=== PATIENT | male | born 1980 | race Caucasian/White ===

== ENCOUNTER → 2022-03-18 14:03 | Outpatient (REF) | payer OTHER, SELFPAY | LOC: HO.SL 14:03 | PROVIDERS: PCP Internal Medicine; Visit Provider Nurse Practitioner Family | DX: G47.33 Obstructive sleep apnea (adult) (pediatric) (principal); R06.83 Snoring | CPT/HCPCS: 95806 ==

== ENCOUNTER → 2022-04-28 15:50 | Outpatient (BNVA) | payer OTHER, SELFPAY | PROVIDERS: PCP Internal Medicine; Visit Provider Internal Medicine | DX: G47.33 Obstructive sleep apnea (adult) (pediatric) (principal); R06.83 Snoring; J30.9 Allergic rhinitis, unspecified | CPT/HCPCS: 99202 ==

== ENCOUNTER 2023-02-28 14:06 | Outpatient (AMB) | payer OTHER, SELFPAY ==
--- NOTE | 2023-02-28 14:12 | A.OFFVIS_ITS ---
Intake Vital Signs 02/28/23 14:20 Height 57 ft Weight 186 lb BMI 0.3 BP 112/70 Blood Pressure Location Lt brachial Position Sitting Pulse 82 Pulse Source Pulse Oximeter Pulse Oximetry (%) 98 Oxygen Delivery Method Room Air Intake Visit Reasons: Sleep apnea Intake Note: pt is here for follow up of JOHANA and states he could not use the machine due to d ry mouth. He feels good, but states sometimes he goes to bed late but does not feel tired throughout the day. pt had surgery recently and told that he may need oxygen. Senior Clinical Research Scientist Required: Yes Senior Clinical Research Scientist Name: Yari Allergies hydroxyzine [Vistaril] Adverse Reaction (Unknown, Verified 02/28/23 14:39) confusion Medication List - Last Reconciled 02/28/23 by Bea Valencia MD azelastine-fluticasone 137-50 mcg/spray 1 spray intranasal BID 30 days MDD ALLERGIC RHINITIS Do you need a note to return to daycare/school/sports/work: No HPI Sleep apnea HPI Details 42 years old gentleman is a case of obst ructive sleep apnea, He was not able to use the CPAP so returned the machine. He did lose 10 lb of weight. He is sleeping mostly in lateral position. He does have some snoring at night but, sleeps okay throughout the night. He denies any daytime sleepiness, except for the days when he slept late at night. He has no cough wheezing or shortness. Of breath during the daytime Nasal congestion is controlled with the use of Azelastine-fluticasone nasal spray 1 spray in each nostril b.i.d.. [facility] Medical History Allergic rhinitis Obstructive sleep apnea syndrome, moderate Chronic sinusitis Snoring Surgical History History of orthopedic surgery History of excision of mass Family History Father Bone cancer Mother CVD (cardiovascular disease) Maternal Grandfather Cancer of neck Maternal Grandmother Diabetes CVD (cardiovascular disease) Social History Housing: House Alcohol intake: current Alcohol intake frequency: holidays/special occasions only Patient Tobacco Use Status: Current everyday Tobacco user Cigarettes Per Day: 12 e-Cigarette/Vaping Use: Never Used Second Hand Smoke Exposure: No service: No Current occupational status: employed Cognitive needs: No Hearing needs: No Vision needs: No Review of Systems Const All systems reviewed & are unremarkable except as noted in HPI and below Reports snoring Eyes Reports no additional complaints ENT Reports nasal congestion and Reports nasal discharge Card Denies chest pain at rest, Denies irregular heart rhythm and Denies leg edema Resp Reports cough (MILD OFF AND ON), Reports snoring and Denies wheezing GI Reports no additional complaints Reports no additional complaints Musc Reports no additional complaints Skin/Breast Reports system reviewed and no additional complaints, except as documented Neuro Reports no additional complaints Psych Reports no additional complaints Endo Reports no additional complaints Aller/Immun Reports no additional complaints and Denies wheezing Physical Exam Vital Signs: Last Vital Signs Pulse 82 02/28/23 14:20 BP 112/70 02/28/23 14:20 Pulse Ox 98 02/28/23 14:20 Oxygen Delivery Method Room Air 02/28/23 14:20 BMI result Body Mass Index 0.3 Const General: healthy appearing (EXCEPT FOR MODERATELY OVERWEIGHT), comfortable, no acute distress, alert and awake Orientation/consciousness: patient oriented x3 HEENT Head: Yes normal to inspection General nose exam: No nasal polyps present, No nasal discharge present and Other nasal findings present (MILD NASAL CONGESTION) Face and sinus: Yes sinuses nontender Mouth: oropharynx normal Throat: Yes posterior oropharynx normal Eyes General: appearance normal, both eyes and all related structures Neck Neck: Yes normal visual inspection, Yes no lymphadenopathy, Yes trachea midline and Yes no JVD Thyroid: Thyroid normal Chest Chest palpation & inspection: normal inspection of the chest, normal palpation of entire chest wall and no tenderness Resp Effort & Inspection: normal respiratory effort Auscultation: clear to auscultation bilaterally, no crackles and no wheezes Cardio Palpation: normal PMI Rate: regular rate Rhythm: regular rhythm Heart sounds: no gallops and no murmurs Peripheral pulses: Peripheral pulses 2+ throughout GI Palpation (GI): Soft to palpation, nontender, No hepatosplenomegaly present and no masses Auscultation: normal bowel sounds Back/Spine/Pelvis Thoracic/Lumbar Spine: thoracic and lumbar spine normal to inspection Skin General skin exam: no rashes or lesions noted Neuro General: patient oriented x3 and no focal motor deficits Cranial nerves: Yes CN's II-XII intact bilaterally Extrem General: Yes normal to inspection, Yes no clubbing, cyanosis or edema and Yes no calf tenderness Psych Appearance: grossly normal and well kempt Speech and movement: Normal speech and movement present Assessment & Plan Assessment & Plan (1) Allergic rhinitis: Comment: HE HAS HAD LOW-GRADE CHRONIC ALLERGIC RHINITIS, HE HAS TRY TO USE FLONASE IN THE PAST WITHOUT MUCH HELP. CURRENTLY ON AZELASTINE- FLUTICASONE 1 SPRAY IN EACH NOSTRIL B.I.D. HE MAY USE LORATADINE 10 MG AT BEDTIME P.R.N.. Code(s): J30.9 - Allergic rhinitis, unspecified Plan: ABOVE (2) Snoring: Comment: ACCORDING TO HIS HE DEFINITELY HAS LOUD SNORING AND FREQUENT AWAKENING DURING THE NIGHT. NOW THAT HE HAS LOST 10 LB OF WEIGHT, HIS SNORING IS LESS, ESPECIALLY WHEN HE SLEEPS ON HIS SIDE. Code(s): R06.83 - Snoring Plan: ADVISED TO CONTINUE LOSING MORE WEIGHT, AND ALSO ALWAYS SLEEP IN LATERAL POSITION . (3) Obstructive sleep apnea syndrome, moderate: Comment: HE HAS MODERATELY SEVERE OBSTRUCTIVE SLEEP APNEA WITH TOTAL SLEEP TIME AHI 18.1, MOST OF THE SLEEP IS IN SUPINE POSITION. SNORING FOR 23% OF THE SLEEP TIME PART OF JOHANA. ALSO HAS MILD NOCTURNAL HYPOXEMIA WITH O2 SAT BELOW 88% FOR 27 MINUTES. I EXPLAINED TO THE PATIENT AND HIS THROUGH THE INTEGRATION PROJECT MANAGER, ABOUT THE FINDINGS OF HIS SLEEP STUDY, AND NEED TO START USING THE CPAP. HE WAS PRESCRIBED CPAP, BUT HE COULD NOT USE. HE FELT HIS MOUTH TO BE DRY. RETURN THE CPAP DEVICE. CONSERVATIVE MEASURES WILL INCLUDE WEIGHT REDUCTION AND SLEEPING IN LATERAL POSITION, FOR WHICH HE HAS BEEN INSTRUCTED. Code(s): G47.33 - Obstructive sleep apnea (adult) (pediatric) Plan: CONTINUE TO LOSE WEIGHT. ALWAYS SLEEP IN RIGHT LATERAL POSITION Coding Level of Care Code Est Pt Level 3 (16554) Diagnoses Allergic rhinitis J30.9 Snoring R06.83 Obstructive sleep apnea syndrome, moderate G47.33
[2023-02-28 14:20] VITALS: BP 112/70; PULSE 82; O2SAT 98
== END 2023-02-28 14:39 | disposition home or self-care (01) ==
PROVIDERS: PCP Internal Medicine; Visit Provider Internal Medicine
DX: J30.9 Allergic rhinitis, unspecified (principal); R06.83 Snoring; G47.33 Obstructive sleep apnea (adult) (pediatric)
CPT/HCPCS: 99213

== ENCOUNTER → 2023-02-28 14:06 | Outpatient (BNVA) | payer OTHER, SELFPAY | PROVIDERS: PCP Internal Medicine; Visit Provider Internal Medicine | DX: G47.33 Obstructive sleep apnea (adult) (pediatric) (principal); R06.83 Snoring; J30.9 Allergic rhinitis, unspecified; F17.210 Nicotine dependence, cigarettes, uncomplicated | CPT/HCPCS: 99212 ==

== ENCOUNTER 2024-09-17 23:53 | Emergency (ER) | payer OTHER, SELFPAY ==
[2024-09-18 00:01] VITALS: BP 135/75; PULSE 102; RESP 18; TEMP 36.8; O2SAT 97; BMI 27.2
[2024-09-18 02:12] VITALS: BP 134/79; PULSE 88; TEMP 36.7; O2SAT 98
--- NOTE | 2024-09-18 03:29 | ED.GENADULT ---
HPI - General Adult General Chief complaint: Extremity Injury, Lower Stated complaint: left foot swollen Time Seen by Provider: 09/18/24 03:01 Source: patient, RN notes reviewed, old records reviewed and special education math teacher Mode of arrival: ambulatory Limitations: language barrier History of Present Illness ED Provider: Leanne HPI narrative: 44-year-old male presents for evaluation of left foot pain and swelling. His symptoms started 3 days ago. He has a small wound to the top of the left foot. It has been improving with topical antibiotic. He has pain behind the left leg prompting him to come to the ER today. Denies any fevers or chills. He denies any history of DVT or PE. He is not been on any recent long car rides or travel by plane Related Data Previous Rx's ?Medication ?Instructions ?Recorded azelastine 137 mcg-fluticasone 50 1 spray intranasal BID 30 days #23 04/28/22 mcg/spray nasal spray grams cephalexin 500 mg tablet 500 mg PO QID #28 tabs 09/18/24 Allergies Allergy/AdvReac Type Severity Reaction Status Date / Time hydroxyzine (Vistaril) AdvReac Unknown confusion Verified 09/18/24 00:06 Review of Systems Constitutional: Constitutional: Denies body ache(s), Denies chills, Denies fever(s) and Denies frequent falls Eyes: Eyes: Denies blurry vision and Denies itchy eyes Cardiovascular: Cardiovascular: Denies chest pain, Denies chest pain at rest and Denies dyspnea on exertion Respiratory: Respiratory: Denies cough and Denies dyspnea on exertion Gastrointestinal: Gastrointestinal: Denies abdominal pain Integumentary/Breasts: Skin/Breast: Reports erythema, Reports skin pain, Reports skin swelling and Reports wounds Neurologic: Denies frequent falls Allergic/Immunologic: Allergic/Immunologic: Denies itchy eyes PMFSH Past Medical History Medical History Allergic rhinitis Obstructive sleep apnea syndrome, moderate Chronic sinusitis Snoring Surgical History History of orthopedic surgery History of excision of mass Family History Family History Father Bone cancer Mother CVD (cardiovascular disease) Maternal Grandfather Cancer of neck Maternal Grandmother Diabetes CVD (cardiovascular disease) Social History Social History Housing: House Alcohol intake: current Alcohol intake frequency: holidays/special occasions only Patient Tobacco Use Status: Current everyday Tobacco user Cigarettes Per Day: 12 e-Cigarette/Vaping Use: Never Used Second Hand Smoke Exposure: No Advance Directives: No Advance Directives Information Provided: Yes service: No Current occupational status: employed Cognitive needs: No Hearing needs: No Vision needs: No Physical Exam ED Vital Signs: Vital Signs - 24 hr 09/18/24 00:01 09/18/24 02:12 09/18/24 03:48 Temperature 98.3 F 98.1 F 98.1 F Pulse Rate 102 H 88 88 Respiratory Rate 18 17 Blood Pressure 135/75 134/79 134/79 Pulse Oximetry 97 98 98 Oxygen Delivery Method Room Air Room Air Room Air BMI result Body Mass Index 27.2 Const General: healthy appearing, comfortable, no acute distress, alert and awake Nutritional Appearance: well nourished Orientation/consciousness: patient oriented x3 HENMT Head: Yes normocephalic and Yes atraumatic Eyes Eyelids: Yes eyelids normal Conjunctivae: conjunctivae normal Sclerae: sclerae normal Corneas: corneas normal Pupils: Equal, round and reactive pupils present EOM: EOMs intact bilaterally Neck Neck: Yes full ROM Resp Effort & Inspection: normal respiratory effort, able to speak in complete sentences and not labored GI Inspection: No distended Palpation (GI): Soft to palpation, not firm, nontender, no guarding and not rigid Skin Other: the patient has a 2 cm round area of skin breakdown with surrounding erythema. There is very minimal edema extending proximally up the left she had. No calf tenderness, negative Homans sign General skin exam: elasticity normal Neuro General: patient oriented x3 Cranial nerves: Yes Equal, round and reactive pupils present and Yes Bilaterally intact EOM present Cognition (Neuro): normal cognition Extrem Other: Moving all extremities well without any obvious deformities Medications Administered Discontinued Medications Generic Name Dose Route Start Last Admin Trade Name Freq PRN Reason Stop Dose Admin Cephalexin HCl 500 mg 09/18/24 03:25 09/18/24 03:40 Cephalexin 500 Mg Capsule PO 09/18/24 03:26 500 mg ONCE ONE Administration Medical Decision Making Medical Decision Making [facility] Narrative: the patient appears to have a mild cellulitis in an area of skin breakdown. He has some abrasion to top of the left foot likely due to his she is being too tight as he has a similar area on the right foot but not as severe. he is not a diabetic, I considered an ultrasound of the left lower extremity to rule out DVT but he has no risk factors or history of DVT. Cellulitis is a much more likely diagnosis. I did discuss return precautions. There is no evidence of systemic infection Differential Diagnosis Differential Diagnoses: The differential diagnosis associated with the presentation includes cellulitis Acute wound Dermatitis DVT Discharge Plan Discharge Clinical Impression: Cellulitis Patient Disposition: Home, Self-Care Instructions: Cellulitis (ED) Additional Instructions: take the antibiotic 4 times daily for 1 week. Apply warm compresses swollen area. If your symptoms are not improving follow-up your primary doctor or return for new /worsening symptoms. I recommend that you get new shoes as it seems as though these are too tight and causing irritation to your skin Prescriptions: New cephalexin 500 mg tablet 500 mg PO QID Qty: 28 0RF No Action azelastine-fluticasone 137-50 mcg/spray spray,non-aerosol 1 spray intranasal BID MDD ALLERGIC RHINITIS 30 Days Qty: 23 3RF Rx Instructions: administer into each nostril Interventions: ED Discharge Assessment Last Done: 09/18/24 03:48 Discharge Date/Time: 09/18/24 03:49 Print Language: Kyrgyz
[2024-09-18] MEDS: cephALEXin 500 MG CAPSULE PO (03:40)
[2024-09-18 03:48] VITALS: BP 134/79; PULSE 88; RESP 17; TEMP 36.7; O2SAT 98
== END 2024-09-18 03:49 | disposition home or self-care (01) ==
PROVIDERS: Emergency Provider Emergency Medicine; PCP Student in an Organized Health Care Education/Training Program
DX: L03.116 Cellulitis of left lower limb (principal); M79.672 Pain in left foot; F17.210 Nicotine dependence, cigarettes, uncomplicated
CPT/HCPCS: 99283